=== PATIENT | male | born 1950 | race Caucasian/White ===

== ENCOUNTER 2018-11-23 23:06 | Inpatient (IN) | payer OTHER ==
[~2018-11-23] VITALS: Ht 180.3 cm; Wt 127.9 kg
[2018-11-23 23:07] VITALS: BP 107/65
[2018-11-23] MEDS ORDERED: LANTUS100 UNIT/M SUBQ (23:29)
[2018-11-23] MEDS ORDERED: NOVOLOG100 UNIT/1 SUBQ ×2 (23:31→23:32)
[2018-11-23] MEDS ORDERED: LIPITOR80 MG PO (23:32)
[2018-11-23] MEDS ORDERED: CARVEDILOL12.5 MG PO (23:32)
[2018-11-23] MEDS ORDERED: COUMADIN7.5 MG PO (23:32)
[2018-11-23 23:33] LABS: ABSOLUTE NEUTROPHILS 6.2 thou/uL (1.4-8.2); BASOPHILS 1.1 % (0.0-2.0); EOSINOPHILS 4.2 % (0.0-3.0); HEMATOCRIT 41.6 % (42.0-52.0); HEMOGLOBIN 14.1 gm/dL (14.0-18.0); LYMPHOCYTES 17.1 % (24.0-44.0); MCH 30.8 pg (26.0-34.0); MCV 90.8 fL (80.0-100.0); MONOCYTES 7.8 % (1.0-8.0); PLATELET COUNT 142 thou/uL (150-400); POLYS 69.8 % (36.0-66.0); RBC 4.58 mil/uL (4.50-6.00); RDW 15.5 % (10.5-14.5); WBC 8.9 thou/uL (4.0-11.0)
[2018-11-23] MEDS ORDERED: ZYRTEC 10 MG TA10 MG PO (23:33)
[2018-11-23] MEDS ORDERED: DIGOXIN125 MCG PO (23:33)
[2018-11-23] MEDS ORDERED: LEXAPRO 10 MG T10 M1 PO (23:33)
[2018-11-23] MEDS ORDERED: FUROSEMIDE 20 M20 MG PO (23:34)
[2018-11-23] MEDS ORDERED: NEURONTIN600 MG PO (23:34)
[2018-11-23] MEDS ORDERED: EUCERIN ORIGIN250 ML (23:34)
[2018-11-23] MEDS ORDERED: CENTRUM SILVER1 EAC2 PO (23:35)
[2018-11-23] MEDS ORDERED: ATIVAN0.5 MG PO (23:35)
[2018-11-23] MEDS ORDERED: SYMBICORT160 MCG/4. PO (23:36)
[2018-11-23] MEDS ORDERED: OMEPRAZOLE 20 M20 M1 PO (23:36)
[2018-11-23] MEDS ORDERED: SPIRONOLACTONE25 MG PO (23:36)
[2018-11-23] MEDS ORDERED: TRIPLE ANTIBIO1 EAC1 (23:37)
[2018-11-23] MEDS ORDERED: DEMADEX20 MG PO (23:37)
[2018-11-23] MEDS ORDERED: TYLENOL EXTRA500 MG PO (23:38)
[2018-11-23] MEDS ORDERED: HYDROCODON-ACE1 EAC7 PO (23:38)
[2018-11-23] MEDS ORDERED: LOPERAMIDE 2 MG2 M1 PO (23:39)
[2018-11-23] MEDS ORDERED: TUMS PO (23:39)
[2018-11-23 23:40] LABS: CALCIUM 8.6 mg/dL (8.5-10.1); CREATININE 1.5 mg/dL (0.7-1.3); POTASSIUM 4.1 mmol/L (3.5-5.1)
[2018-11-23] MEDS ORDERED: MIRALAX17 GM PO (23:40)
[2018-11-23] MEDS ORDERED: MILK OF MA2400 MG/10 PO (23:40)
[2018-11-23] MEDS ORDERED: VENTOLIN HFA 1818 GM INH (23:41)
[2018-11-23] MEDS ORDERED: ULTRAM 50MG TAB50 MG PO (23:41)
[2018-11-23 23:46] LABS: TOTAL BILIRUBIN 0.6 mg/dL (<0.1-1.0)
[2018-11-23 23:52] LABS: INR 3.6; PROTIME 37.5 Seconds (9.3-11.4)
[2018-11-24 00:37] VITALS: BP 108/64
[2018-11-24 00:53] LABS: LARGE PLATELETS OCCASIONAL
--- NOTE | 2018-11-24 03:44 | NUR ---
NEW ADMIT AT 0045. PATIENT ADMITTED FOR LEFT LEG DVT. HEPARIN STARTED. PATIENT IS A SMOKER AND NOT INTERESTED WITH A PATCH OR GUM SAYS BECAUSE HE DONT SMOKE OFTEN.PATIENT ON 2 LITER NO SHORTNESS OF AIR OR DISTRESS NOTED THIS SHIFT. PATIENT IS INCONTINENT OF BOWEL AND BLADDER, PERICARE AND BARRIER CREAM APPLIED NEEDED. PATIENT SKIN IS DRY ON BLE, AND DISCOLORED ON BLE. LEFT LEG IS SWOLLEN. PATIENT DENIED PAIN OR DISCOMFORT. PATIENT IS NPO. PATIENT NEEDS MINIMUM ASSISTANCE WITH ADL, BED MOBILITY, TRANSFER AND TOILETING. PATIENT USE A WHEEL CHAIR.PATIENT HAD ALL HS MEDS AT THE FACILITY.PATIENT IN BED ASLEEP AT THIS TIME BREATHING REGULAR AND UNLABOURED.
[2018-11-24 04:00] VITALS: BP 106/62
[2018-11-24 06:35] LABS: CALCIUM 8.7 mg/dL (8.5-10.1); CREATININE 1.3 mg/dL (0.7-1.3); POTASSIUM 4.1 mmol/L (3.5-5.1)
[2018-11-24 08:00] VITALS: BP 114/75
[2018-11-24 15:00] VITALS: BP 106/68
--- NOTE | 2018-11-24 16:17 | 2DMMODE ---
[facility] [place] [address] 2 D/M-MODE ECHOCARDIOGRAM Name: HUSSEIN FENTON Room #: 463-P [facility].#: [id number] Admission: 11/24/18 Attend Phys: Jian Patiño MD Discharge: Date of : 52 Date of Service: 11/24/18 1617 Report #: [id number] THIS REPORT FOR: //name// APPROVED REPORT Study performed: 11/24/2018 10:01:08 EXAM: Comprehensive 2D, Doppler, and color-flow Echocardiogram Patient Location: Bedside Status: on-call BSA: 2.44 HR: 83 bpm BP: 106/62 mmHg Rhythm: NSR Other Information Study Quality: Adequate Technically limited study due to obesity, COPD. Indications DVT, aortic valve replacement. Hx: Pacermaker, Afib, COPD, HTN, HLP 2D Dimensions IVSd: 13.44 (7-11mm) LVDd: 64.00 mm PWd: 13.00 (7-11mm) Ascending Ao: 44.80 (22-36mm) LVDs: 54.00 (25-40mm) Aortic Root: 46.35 mm Volumes Left Atrial Volume (Systole) Single Plane 4CH: 95.00 mL Single Plane 2CH: 116.82 mL LA ESV Index: 46.00 mL/m2 Aortic Valve AoV Peak Johnathan.: 3.36 m/s AO Peak Gr.: 45.27 mmHg LVOT Max P.63 mmHg AO Mean Gr.: 23.54 mmHg AO V2 Mean: 2.30 m/s LVOT Max V: 1.08 m/s AO V2 VTI: 63.55 cm Mitral Valve MV Decel. Time: 160.25 ms [facility] [address] [place] [address] 2 D/M-MODE ECHOCARDIOGRAM Name: HUSSEIN FENTON Room #: 463-[facility].#: [id number] Admission: 11/24/18 Attend Phys: Jian Patiño MD Discharge: Date of : 52 Date of Service: 11/24/18 1617 Report #: [id number] E Max Johnathan.: 1.10 m/s Pulmonary Valve PV Peak Johnathan.: 0.92 m/s PV Peak Gr.: 3.40 mmHg Tricuspid Valve TR Peak Johnathan.: 2.56 m/s RAP Estimate: 5.00 mmHg TR Peak Gr.: 26.23 mmHg PA Pressure: 31.00 mmHg Left Ventricle Left ventricle is moderately dilated. Regional wall motion abnormalities are noted. Mild concentric left ventricular hypertrophy. Left ventricular systolic function is moderately decreased. LVEF is 35-40%. This study is not technically sufficient to allow evaluation of the LV diastolic function. Right Ventricle Right ventricle is mildly dilated. Right ventricle is mildly hypokinetic. Atria Left atrium is severely dilated. Right atrium is severely dilated. Pacemaker lead is present in the right atrium. Aortic Valve Prosthetic aortic valve is present. Not well visualized. Peak pressure gradient is 45mmHg and mean is 24mmHg. Trace aortic regurgitation. Mitral Valve The mitral valve is normal in structure. Trace mitral regurgitation. Tricuspid Valve The tricuspid valve is normal in structure. Trace to mild tricuspid regurgitation. Estimated PAP is 30-35mmHg. Pulmonic Valve Pulmonic valve is not well visualized. Great Vessels Aortic root is not well visualized. Ascending aorta is dilated at 4.5cm. IVC is normal in size and collapses >50% with inspiration. [facility] [address] [place] [address] 2 D/M-MODE ECHOCARDIOGRAM Name: HUSSEIN FENTON Room #: 463-P [facility] IN .R.#: [id number] Admission: 11/24/18 Attend Phys: Jian Patiño MD Discharge: Date of : 52 Date of Service: 11/24/18 1617 Report #: [id number] Pericardium There is no pericardial effusion. <Conclusion> Left ventricle is moderately dilated. LVEF is 35-40%. Regional wall motion abnormalities are noted. Right ventricle is mildly dilated. Right ventricle is mildly hypokinetic. Left atrium is severely dilated. Right atrium is severely dilated. Pacemaker lead is present in the right atrium. Prosthetic aortic valve is present. Not well visualized. Peak pressure gradient is 45mmHg and mean is 24mmHg. Trace aortic regurgitation. The mitral valve is normal in structure. Trace mitral regurgitation. The tricuspid valve is normal in structure. Trace to mild tricuspid regurgitation. Estimated PAP is 30-35mmHg. Ascending aorta is dilated at 4.5cm. There is no pericardial effusion. <ELECTRONICALLY SIGNED> By: Bruno Henderson MD 11/24/18 1617 161 161 Bruno Henderson MD /INF
--- NOTE | 2018-11-24 18:48 | NUR ---
VSS-AFEBRILE. LUNGS CLEAR/DIMISHED IN ALL BECERRIL BILATERALLY. 2LNC IN PLACE. POOR APPETITE THIS SHIFT, OCCASIONA REPORTS OF NAUSEA. PARTIAL RELIEF WITH ZOFRAN. NYSTATIN POWDER ORDERED FOR YEAST INFECTION IN GROIN AREA, TO LEAVE BRIEF OFF FOR RELIEF. INCONTINENT OF URINE MULTIPLE TIMES THROUGH SHIFT. TURNED EVERY TWO HOURS FOR COMFORT. BIPAP ORDERED FOR REST PERIODS AND HS, SETTING 14/8 WITH 3L O2 BLEED. DISCUSSED WITH RT, VERBALIZED UNDERSTANDING. ECHO COMPLETED. CALLS APPROPRIATELY FOR ANY NEEDED ASSISTANCE. CAN TRANSFER SELF FROM BED TO COMMODE. LEFT LOWER EXTREMITY SLIGHTLY EDEMATOUS WITH SOME RED DISCOLORATION. PALPABLE PULSES BILATERALLY.
[2018-11-24 19:51] VITALS: BP 118/77
[2018-11-25 03:32] VITALS: BP 132/60
[2018-11-25 04:16] LABS: HEMATOCRIT 41.6 % (42.0-52.0); HEMOGLOBIN 13.8 gm/dL (14.0-18.0); MCH 30.3 pg (26.0-34.0); MCHC 33.1 g/dL (28.0-37.0); MCV 91.6 fL (80.0-100.0); RBC 4.55 mil/uL (4.50-6.00); RDW 16.2 % (10.5-14.5); WBC 6.1 thou/uL (4.0-11.0)
[2018-11-25 04:23] LABS: INR 2.4; PROTIME 25.2 Seconds (9.3-11.4)
[2018-11-25 04:40] LABS: ALBUMIN 2.8 g/dL (3.4-5.0); CALCIUM 8.9 mg/dL (8.5-10.1); CREATININE 1.3 mg/dL (0.7-1.3); PHOSPHORUS 2.8 mg/dL (2.5-4.9); POTASSIUM 4.3 mmol/L (3.5-5.1)
[2018-11-25 07:38] VITALS: BP 115/73
--- NOTE | 2018-11-25 07:48 | NUR ---
PT LYING IN BED. TYLENOL PROVIDING HEADACHE RELIEF. RESTING COMFORTABLY. NO NEEDS VOICED. CALL LIGHT WITHIN REACH. WILL CONTINUE TO PROVIDE FREQUENT OBSERVATION.
[2018-11-25 13:20] VITALS: BP 120/77
--- NOTE | 2018-11-25 17:08 | NUR ---
ASSUMED CARE AT 0700. AXOX4. ON CPAP AT NIGHT. SEEN BY AT BEDSIDE. IR IVC FILTER PLACEMENT TOMORROW. PER , IT SHOULD BE DONE WITH . PT AWARE ABOUT THE PROCEDURE AND NPO AFTER MIDNIGHT. C/O LPÓEZ RAISE SKIN, REPORTED TO AND PER MD, IT'S BRUISING. NO S/S ACUTE DISTRESS NOTED OR REPORTED AT THIS TIME. WILL CONT TO MONITOR FOR ANY CHANGES IN CONDITION.
[2018-11-25 19:13] VITALS: BP 122/75
--- NOTE | 2018-11-25 21:57 | EKG ---
[address] [place] [address] ELECTROCARDIOGRAM REPORT Name: FENTONHUSSEIN Room #: 463-P ADM IN M.R.#: [id number] Admission: 11/24/18 Attend Phys: Jian Patioñ MD Discharge: Date of : 52 Report #: [id number] THIS REPORT FOR: //name// [facility] ED Test Date: 2018-11-24 Test Time: 00:23:50 Pat Name: HUSSEIN FENTON Department: Room: 463 Gender: M Director Of Strategic Initiatives: NIRALI : 1950 Requested By: Kirill Arias Order Number: [id number] MD: Minesh Leon Measurements Intervals [place] Rate: 80 P: 0 AK: 258 QRS: 255 QRSD: 111 T: 67 QT: 409 QTc: 472 Interpretive Statements Ventricular-paced rhythm No further analysis attempted due to paced rhythm No previous ECG available for comparison Electronically Signed On 11-25-2018 21:56:42 [employer] by Minesh Leon [email or web address] <ELECTRONICALLY SIGNED> By: Minesh Leon MD 11/25/18 2156 0023 Minesh Leon MD /OSCAR
[2018-11-26 03:35] VITALS: BP 120/79
[2018-11-26 06:16] LABS: INR 1.5; PROTIME 15.4 Seconds (9.3-11.4)
--- NOTE | 2018-11-26 06:49 | NUR ---
PT LYING IN BED. TRAMADOL PROVIDING PAIN RELIEF. PLAN FOR PLACEMENT OF IVC FILTER 11/26. RESTING COMFORTABLY. NO NEEDS VOICED. CALL LIGHT WITHIIN REACH. WILL CONTINUE TO PROVIDE FREQUENT OBSERVATION.
--- NOTE | 2018-11-26 07:38 | NUR ---
ASSUMED CARE AT 0700. AXOX4. LARGE BOWEL MOVEMENT. VSS. LEFT FOR KIZZY FILTER PLACEMEMT WITH . NO S/S ACUTE DISTRESS NOTED OR REPORTED UPON DEPARUTRE.
[2018-11-26] MEDS ORDERED: ELIQUIS5 MG PO (10:18)
[2018-11-26 10:27] VITALS: BP 164/86
[2018-11-26 11:38] VITALS: BP 164/86
--- NOTE | 2018-11-26 12:12 | NUR ---
PT AD MITTED RELATED TO LEFT LEG DVT. CM REVIEWED CHART AND SPOKE WITH CARE TEAM. CM MET WITH PT AND HIS DTR AT BEDSIDE THIS DAY. PT INDICATED HE LIVES AT THE F AT [facility]. PT INDICATED HE HAS HIS OWN APARTMENT AND THAT THEY PROVIDE MEALS AND ASSISTANCE WITH PASSING MEDS. 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 PT INDICATED HE HAS HOME O2 THROUGH [facility]. PT INDICATED HE HAD BEEN INDEPENDENT WITH TRANSFERS. PT INDICATED HE HAD [facility] [employer] AND INDICATED HE WOULD LIKE TO USE THEM AGIAN UPON DISCHARGE. PT INDICATED HE PLANS TO RETURN BACK TO [facility] WITH [facility] ONCE MEDICALLY STABLE. CARE TEAM INDICATED THAT PT MAY BE ABLE TO DISCHARGE LATER THIS AFTERNOON. CM TO FOLLOW INDICATED WITH DC PLANNING.
[2018-11-26 15:00] VITALS: BP 125/79
[2018-11-26 15:17] VITALS: BP 164/86
--- NOTE | 2018-11-26 15:20 | NUR ---
CARE TEAM INDICATED THAT PT WILL BE MEDICALLY STABLE TO [facility]. PT WOULD LIKE TO HAVE [facility]. GERALDO CALLED AND SPOKE WITH MARISSA AND SHE INDICATED THEY WOULD ARRANGE [facility] TO PICK PT UP ONCE ORDERS WERE RECEIVED. ORDERS ARE IN AWAITING INDICATION FORM NURSE TO SCHEDULE TRANSPORT. CHART COPY MADE. ORDERS TO BE FAXED.
--- NOTE | 2018-11-26 15:37 | NUR ---
patient dc today back to [facility], dp sent to [facility], Marlen from [facility] confirmed they received dc paperwork. DP sent over to [facility], dp alerted Jeannette from [facility] to expect dc papers.
--- NOTE | 2018-11-26 15:38 | NUR ---
ASSUMED CARE AT 0700. AXOX4. PT COMPLETED IVC FILTER PLACEMENT IR. CAME BACK IN STABLE CONDITION. KEPT FLAT IN BED FOR 3HRS. SEEN BY AT BEDSIDE. RECEIVED AN ORDER TO D/C TO [facility]ED [facility]IV[facility] WITH HH. AWAITING OT EVAL. NO S/S ACUTE DISTRESS NOTED OR REPORTED AT THIS TIME. WILL CONT TO MONITOR FOR ANY CHANGES IN CONDITION.
[2018-11-26 16:02] VITALS: BP 164/86
--- NOTE | 2018-11-26 16:03 | NUR ---
DC BUSINESS DEVELOPMENT CONSULTANT FAXED REFERRAL TO [facility]. THEY CALLED AND INDICATED THAT THEY WOULDN'T BE ABLE TO ACCEPT PT B/C OF LACK OF NURSE IN THAT SERVICE AREA. CM NOTIFIED [facility] AND ASKED THAT THEY LOOK PT OVER FOR POSSIBLE SERVICES. CM REACHED OUT TO MARISSA AND NOTIFIED HER THAT ORDERS WERE FAXED TO THEM WELL. AWAITING RESPONSE ON TRANSPORT. CM TO FOLLOW INDICATED WITH DC PLANNING.
== END 2018-11-26 17:34 | disposition home health service (06) | DRG 252 ==
LOC: ER 23:06 → EROBS 11-24 00:39 → 4W 11-24 00:39
PROVIDERS: Emergency Medicine; Internal Medicine; Nurse Practitioner Family; ADMIT Hospitalist
PROC: 5A09357 Assistance with Respiratory Ventilation, Less than 24 Consecutive Hours, Continuous Positive Airway Pressure (ICD-10-PCS; principal; 2018-11-24)
PROC: 06H03DZ Insertion of Intraluminal Device into Inferior Vena Cava, Percutaneous Approach (ICD-10-PCS; 2018-11-26)
DX: I82.412 Acute embolism and thrombosis of left femoral vein (principal); E43 Unspecified severe protein-calorie malnutrition; I38 Endocarditis, valve unspecified; I13.0 Hypertensive heart and chronic kidney disease with heart failure and stage 1 through stage 4 chronic kidney disease, or unspecified chronic kidney disease; I82.432 Acute embolism and thrombosis of left popliteal vein; J44.9 Chronic obstructive pulmonary disease, unspecified; I50.9 Heart failure, unspecified; F41.9 Anxiety disorder, unspecified; E78.5 Hyperlipidemia, unspecified; G47.33 Obstructive sleep apnea (adult) (pediatric); E11.22 Type 2 diabetes mellitus with diabetic chronic kidney disease; F17.210 Nicotine dependence, cigarettes, uncomplicated; I48.0 Paroxysmal atrial fibrillation; N18.3 Chronic kidney disease, stage 3 (moderate); E66.01 Morbid (severe) obesity due to excess calories; Z95.0 Presence of cardiac pacemaker; Z88.2 Allergy status to sulfonamides; Z88.8 Allergy status to other drugs, medicaments and biological substances; Z95.2 Presence of prosthetic heart valve; Z79.01 Long term (current) use of anticoagulants; Z71.6 Tobacco abuse counseling; Z79.899 Other long term (current) drug therapy
CPT/HCPCS: 10045

== ENCOUNTER → 2019-03-20 | Outpatient (CLI) | payer OTHER ==
[~2019-03-20] VITALS: Ht 180.3 cm; Wt 126.6 kg
[~2019-03-20] MED LIST: ATIVAN0.5 MG PO; CARVEDILOL12.5 MG PO; CENTRUM SILVER1 EAC2 PO; COUMADIN7.5 MG PO; DEMADEX20 MG PO; DIGOXIN125 MCG PO; ELIQUIS5 MG PO; EUCERIN ORIGIN250 ML; FUROSEMIDE 20 M20 MG PO; HYDROCODON-ACE1 EAC7 PO; LANTUS100 UNIT/M SUBQ; LASIX 20 MG TAB20 MG PO; LEXAPRO 10 MG T10 M1 PO; LIPITOR80 MG PO; LOPERAMIDE 2 MG2 M1 PO; MELATONIN5 M1 PO; MILK OF MA2400 MG/10 PO; MIRALAX17 GM PO; NEURONTIN600 MG PO; NORCO 5-325 TA1 EAC1 PO; NOVOLOG100 UNIT/1 SUBQ; OMEPRAZOLE 20 M20 M1 PO; SPIRONOLACTONE25 MG PO; SYMBICORT160 MCG/4. PO; TRIPLE ANTIBIO1 EAC1; TUMS PO; TYLENOL EXTRA500 MG PO; ULTRAM 50MG TAB50 MG PO; VENTOLIN HFA 1818 GM INH; ZYRTEC 10 MG TA10 MG PO
[2019-03-20 12:26] LABS: HEMATOCRIT 43.7 % (42.0-52.0); HEMOGLOBIN 14.8 gm/dL (14.0-18.0); MCH 31.5 pg (26.0-34.0); MCHC 33.9 g/dL (28.0-37.0); MCV 92.9 fL (80.0-100.0); RBC 4.7 mil/uL (4.50-6.00); RDW 14.6 % (10.5-14.5); WBC 7.7 thou/uL (4.0-11.0)
[2019-03-20 12:33] LABS: CALCIUM 8.8 mg/dL (8.5-10.1); CREATININE 1.5 mg/dL (0.7-1.3); POTASSIUM 4.5 mmol/L (3.5-5.1)
[2019-03-20 12:34] VITALS: BP 103/65
[2019-03-20 15:50] VITALS: BP 105/61
[2019-03-20 16:05] VITALS: BP 103/64
[2019-03-20 16:20] VITALS: BP 105/61
== END | disposition home or self-care (01) ==
LOC: SPEC 11:26
PROVIDERS: Nuclear Medicine Nuclear Cardiology
DX: I87.392 Chronic venous hypertension (idiopathic) with other complications of left lower extremity (principal); I87.1 Compression of vein; M79.89 Other specified soft tissue disorders; I11.0 Hypertensive heart disease with heart failure; I50.9 Heart failure, unspecified; E78.5 Hyperlipidemia, unspecified; E11.9 Type 2 diabetes mellitus without complications; I48.91 Unspecified atrial fibrillation; J44.9 Chronic obstructive pulmonary disease, unspecified; F41.9 Anxiety disorder, unspecified; F32.9 Major depressive disorder, single episode, unspecified; G47.33 Obstructive sleep apnea (adult) (pediatric); F17.210 Nicotine dependence, cigarettes, uncomplicated; E66.09 Other obesity due to excess calories; Z95.0 Presence of cardiac pacemaker; Z79.01 Long term (current) use of anticoagulants; Z79.4 Long term (current) use of insulin; Z95.2 Presence of prosthetic heart valve; Z88.2 Allergy status to sulfonamides; Z88.8 Allergy status to other drugs, medicaments and biological substances; Z98.890 Other specified postprocedural states; Z79.899 Other long term (current) drug therapy; Z86.718 Personal history of other venous thrombosis and embolism

== ENCOUNTER 2019-08-02 16:38 | Emergency (ER) | payer OTHER ==
[~2019-08-02] VITALS: Ht 180.3 cm; Wt 120.7 kg
[2019-08-02] MEDS ORDERED: NORCO 5-325 TA1 EAC1 PO (17:46)
== END 2019-08-02 19:28 | disposition home or self-care (01) ==
LOC: ER 16:38
DX: S63.502A Unspecified sprain of left wrist, initial encounter (principal); I11.0 Hypertensive heart disease with heart failure; I50.9 Heart failure, unspecified; I48.91 Unspecified atrial fibrillation; G47.33 Obstructive sleep apnea (adult) (pediatric); E11.9 Type 2 diabetes mellitus without complications; E66.9 Obesity, unspecified; E78.5 Hyperlipidemia, unspecified; F41.9 Anxiety disorder, unspecified; Z68.37 Body mass index [BMI] 37.0-37.9, adult; Z95.0 Presence of cardiac pacemaker; Z79.4 Long term (current) use of insulin; Z91.048 Other nonmedicinal substance allergy status; Z88.2 Allergy status to sulfonamides; Z88.8 Allergy status to other drugs, medicaments and biological substances; W01.0XXA Fall on same level from slipping, tripping and stumbling without subsequent striking against object, initial encounter; Y93.89 Activity, other specified; Y92.89 Other specified places as the place of occurrence of the external cause; Y99.8 Other external cause status